=== PATIENT | male | born 1995 | race African-American/Black ===

== ENCOUNTER 2018-09-25 16:40 | Outpatient (CLI) | payer SELFPAY ==
[2018-09-25 17:47] LABS: APPEARANCE,URINE CLEAR (CLEAR); COLOR,URINE YELLOW (YELLOW); OCCULT BLOOD,URINE 3+ (NEGATIVE)
== END 2018-09-25 16:42 ==
LOC: LAB 16:40
PROVIDERS: ATTEND Nurse Practitioner Family
DX: R56.9 Unspecified convulsions (principal); G80.9 Cerebral palsy, unspecified; G93.1 Anoxic brain damage, not elsewhere classified; Z51.81 Encounter for therapeutic drug level monitoring; M24.50 Contracture, unspecified joint; F79 Unspecified intellectual disabilities
CPT/HCPCS: 81002; 87086

== ENCOUNTER 2019-03-01 11:33 | Emergency (ER) | payer OTHER ==
[2019-03-01 11:57] VITALS: BP 101/80
--- NOTE | 2019-03-01 12:19 | ED Physician Documentation ---
Upper Respiratory Symptoms - HISTORIAN Historian: other (caregivers) - HPI Stated Complaint: cough/fever Chief Complaint: Cough/ Upper Respiratory Additional Information: Patient with past medical history of CP presents from longterm with a 2 day history of cough, fever (101.0), vomiting. Caregivers reports vomiting started about three days ago, then coughing 2 days ago. Patient has poor dentition with a tooth abscess which was draining out his ear in January. Caregiver reports oxygen saturations 88-90% on room air. Onset: minutes Duration: intermittent episodes Context: denies: recent foreign travel Severity: moderate Associated Symptoms: fever. denies: shortness of breath - ROS CONST/EYES: denies: weakness CVS/RESP: denies: shortness of breath GI/: vomiting, nausea NEURO/PSYCH: denies: fainting MS/SKIN: denies: muscle aches - PAST HX Lung Disease: other (CP) PE Risk Factors: none Surgeries/Procedures: none Allergies/Adverse Reactions: Allergies Allergy/AdvReac Type Severity Reaction Status Date / Time No Known Allergies Allergy Unverified 03/01/19 12:48 Home Medications: Ambulatory Orders Medication Instructions Recorded Ciprofloxacin [Cipro] 500 mg PO BID 14 Days #140 ml 03/01/19 Ergocalciferol (Vitamin D2) 4,000 unit PO DAILY 03/01/19 [Vitamin D-2] Polyethylene Glycol 3350 [Miralax] 17 gm PO 1100 03/01/19 Risperidone [Risperdal] 0.5 mg PO BID 03/01/19 levETIRAcetam [Keppra] 500 mg PO BID 03/01/19 - SOCIAL HX Smoking History: non-smoker Alcohol Use: none Drug Use: none - FAMILY HX Family History: none - VITAL SIGNS Vital Signs: Vital Signs Temp Pulse Resp BP Pulse Ox 99.5 F 100 H 20 101/80 03/01/19 11:36 03/01/19 11:36 03/01/19 11:36 03/01/19 11:36 - REVIEWED ASSESSMENTS Nursing Assessment Reviewed: Yes Vitals Reviewed: Yes ED Results Lab/Radiology - Orders Orders: ED Orders Category Date Time Status Place IV Lock 1T Care 03/01/19 11:55 Active CHEST 1VIEW [RAD] Stat Exams 03/01/19 Taken CBC/PLATELET/DIFF Routine Lab 03/01/19 Ordered CMP Routine Lab 03/01/19 Ordered cefTRIAXone SODIUM [Rocephin] Med 03/01/19 12:48 Once 1 gm IM NOW ONE methylPREDNISolone SOD SUCC [Solu-MEDROL] Med 03/01/19 12:21 Discontinued 125 mg IM NOW ONE Upper Respiratory Symptoms - EXAM General Appearance: no acute distress, alert EENT: eyes nml inspection Neck: No: lymphadenopathy Respiratory: no resp. distress, other (coarse breath sounds bilaterally) Abdomen: non-tender, nml bowel sounds, no distention CVS: reg rate & rhythm, heart sounds normal Skin: color nml, no rash, warm,dry Extremities: non-tender, other (atrophy, contracted) Neuro/Psych: neuro intact, mood/affect nml Discharge Clincal Impression: Aspiration pneumonia Qualifiers: Aspiration pneumonia type: due to vomit Laterality: bilateral Lung location: lower lobe of lung Qualified Code(s): J69.0 - Pneumonitis due to inhalation of food and vomit Prescriptions: Ciprofloxacin [Cipro] 500 mg PO BID 14 Days #140 ml Referrals: Adwoa Longoria MD [Primary Care Provider] - 2 Days Additional Instructions: 1. Give Rocephin 1 g IM daily x 14 days. Last dose on 03/15/19 2. Cipro 500mg by mouth twice daily. Last dose on 03/15/19 3. Oxygen 2 liters via nasal cannula with sleep and as needed/titrated during the day to maintain oxygen saturation >92% 4. Honey thick liquids and Puree diet. Aspiration precautions. 5. Obtain swallow study as soon as possible 6. Follow up with PCP within 1 week 7. Return to ER for new or worsening symptoms Condition: Stable Disposition: 01 HOME, SELF-CARE Decision to Admit: NO Date of Decison to Admit: 03/01/19 Decision Time: 12:56
[2019-03-01] MEDS ORDERED: methylPREDNISolone SOD SUCC 125 MG/2 ML VIAL IM ONE (12:21)
[2019-03-01] MEDS ORDERED: LIDOCAINE HCL 1% MDV 200MG/20ML VIAL ONE (12:51)
[2019-03-01] MEDS: cefTRIAXone SODIUM 1 GM INJ IM ONE (13:02)
--- NOTE | 2019-03-01 13:04 | Diagnostic Imaging Report ---
NADEGE PEREIRA [facility] [address] [facility] [address] [place], [place]. [address] Report Submission Date: Mar 01, 2019 12:47:54 PM CDT Patient Study Name: LISHA YAP Date: Mar 01, 2019 12:21:00 PM CDT Modality Type: DX Gender: M Description: : 89 Institution: [facility] Physician: NADEGE PEREIRA EXAMINATION: HISTORY: CXR COUGH CONGESTION COMPARISON: None FINDINGS: Thoracolumbar spinal fusion hardware is present and partially obscures the chest the midline. The patient is rotated to the right. Hands superimpose the shoulders, likely the technologist's for positioning. There is no focal consolidation, pleural effusion, or pneumothorax. The cardiomediastinal silhouette is normal. The visible bony thorax is intact. IMPRESSION: No acute pulmonary process. Electronically signed on Mar 01, 2019 12:47:54 PM CDT by: Terrance RIVAS
== END 2019-03-01 13:18 | disposition home or self-care (01) ==
LOC: ED 11:33
DX: J69.0 Pneumonitis due to inhalation of food and vomit (principal)
CPT/HCPCS: 71045; 96372; 99283; J0696; S1016

== ENCOUNTER 2019-10-01 14:58 | Emergency (ER) | payer OTHER ==
--- NOTE | 2019-10-01 15:15 | ED Physician Documentation ---
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 No other complaints) - ROS CONST: no problems - PAST HX Past History: other (CP and bipolar brain injury seizures ) Immunizations: UTD Allergies/Adverse Reactions: Allergies Allergy/AdvReac Type Severity Reaction Status Date / Time amoxicillin [From Augmentin] Allergy Verified 10/01/19 15:21 clavulanic acid Allergy Verified 10/01/19 15:21 [From Augmentin] codeine Allergy Verified 10/01/19 15:21 adhesive tape AdvReac Rash Verified 10/01/19 15:21 Home Medications: Ambulatory Orders Medication Instructions Recorded Ergocalciferol (Vitamin D2) 4,000 unit PO DAILY 03/01/19 [Vitamin D-2] Polyethylene Glycol 3350 [Miralax] 17 gm PO 1100 03/01/19 Risperidone [Risperdal] 0.5 mg PO BID 03/01/19 levETIRAcetam [Keppra] 500 mg PO BID 03/01/19 - SOCIAL HX Smoking History: non-smoker Alcohol Use: none Drug Use: none - FAMILY HX Family History: No - VITAL SIGNS Vital Signs: Vital Signs Temp Pulse Resp BP Pulse Ox 101/80 03/01/19 11:36 - REVIEWED ASSESSMENTS Nursing Assessment Reviewed: Yes Vitals Reviewed: Yes General Adult Physical Exam - PHYSICAL EXAM GENERAL APPEARANCE: no distress EENT: eye inspection normal, no signs of dehydration NECK: normal inspection RESPIRATORY: no resp distress, chest non-tender, breath sounds normal CVS: reg rate & rhythm ABDOMEN: soft RECTAL: other (testicle exam complete left is more firm - pt did not exhibit any pain with palpation. No redness or swelling ) BACK: normal inspection SKIN: warm/dry EXTREMITIES: non-tender NEURO: other (non verbal ) Discharge Clincal Impression: Testicle pain Referrals: Adwoa Longoria MD [Primary Care Provider] - 2 Days Comments: 1. Follow up with PCP for any continued concerns 2. Keep annabella area clean and dry 3. Return to ER for any increased concerns Condition: Stable Disposition: 01 HOME, SELF-CARE Decision to Admit: NO Date of Decison to Admit: 10/01/19 Decision Time: 16:55
--- NOTE | 2019-10-01 16:53 | Diagnostic Imaging Report ---
PATIENT MR#: [id number] PATIENT PATIENT NAME: LISHA YAP DATE OF : 1995 REFERRING PHYSICIAN: Enedina Squires EXAM DATE: 10/01/2019 ACCESSION NUMBER: [id number] EXAM DESCRIPTION: US SCROTUM CONTENTS Exam: Testicular ultrasound. History: Palpable abnormality on the left. Doppler interrogation and color Doppler imaging of the contents of the scrotum bilaterally are submit misael. The right testicle measures 2.8 x 1.3 x 1.7 cm. It is heterogeneous in echotexture and demonstrates normal color Doppler flow. An area of increased echogenicity adjacent to the upper pole is noted. The left testicle measures 3.0 x 1.5 x 2.2 cm. Some increase in blood flow is identified. The testi prosper is heterogeneous in echotexture. No surrounding masses or fluid collections are identified. Impression: Heterogeneous appearing testicles bilaterally with increase in blood flow to the left may indicate in flammatory process. Irregular area of increased echogenicity in the upper pole of the right kidney is noted. MRI may be beneficial to further evaluate. Read by: Dr. Rafiq Woodward Transcribed by: Transcribed Date: Electronically signed by: Dr. Rafiq Woodward Date signed: 10/01/2019 4:52:33 PM
[2019-10-01 17:01] VITALS: BP 110/84
== END 2019-10-01 16:57 | disposition home or self-care (01) ==
LOC: ED 14:58
DX: N50.812 Left testicular pain (principal)
CPT/HCPCS: 76870; 99282